=== PATIENT | male | born 1990 | race Caucasian/White ===

== ENCOUNTER 2017-12-03 02:05 | Emergency (ER) | payer OTHER ==
--- NOTE | 2017-12-03 02:41 | PDOC ---
History of Present Illness - General Stated Complaint: INFECTION MOUTH Time Seen by Provider: 12/03/17 02:40 History Source: Patient Exam Limitations: No Limitations - History of Present Illness Initial Comments: 27 y/o male presenting to [facility] ER complaining of swelling and tenderness to left upper jaw. Pt was diagnosed with dental abscess four weeks ago and treated with unknown type and unknown duration of antibiotics. Abscess believed to have formed around a previously cracked tooth in the left maxilla. Delayed definitive treatment while awaiting restart of dental insurance. Swelling initially resolved with antibiotic use but returned two days ago. Symptoms have continued to progress and worsening. Pt elected to seek emergency care for pain management. Denies fevers, chills, diaphoresis, or other systemic symptoms. Past History - Past Medical History Allergies/Adverse Reactions: Allergies Allergy/AdvReac Type Severity Reaction Status Date / Time No Known Allergies Allergy Verified 08/20/12 11:30 Home Medications: Ambulatory Orders Naproxen [Naprosyn] 500 mg PO BID #14 tablet 08/20/12 No Home Medications 0 dose .ROUTE UTDICT 08/20/12 Amox-Tr/K Cl [Augmentin - 875Mg Tablet] 1 tab PO BID #14 tablet 12/03/17 - Suicide/Smoking/Psychosocial Hx Smoking Status: No Smoking History: Never smoked Number of Cigarettes Smoked Daily: 0 Review of Systems - Review of Systems Able to Perform ROS?: Yes Is the patient limited Yi proficient: No Constitutional: No: Chills, Diaphoresis, Fever HEENTM: Yes: Mouth Pain, Dental Problems, Mouth Swelling. No: Throat Pain, Throat Swelling, Difficulty Swallowing Respiratory: No: Shortness of Breath Cardiac (ROS): No: Chest Pain ABD/GI: No: Abdominal cramping Musculoskeletal: No: Muscle Pain Integumentary: Yes: Lumps. No: Erythema, Rash, Sweating Hematologic/Lymphatic: No: Easy Bleeding, Easy Bruising *Physical Exam - Physical Exam Comments: Constitutional: Well-developed, well-nourished male in no acute distress but obvious discomfort. Found sitting upright on edge of bed. Alert and oriented x4. Answered all questions appropriately and completely. Speech was non-labored , non-pressured. HEENT: Asymmetry to face with grossly obvious swelling to upper left cheek. Suspected abscess approx. 5cm x 5cm; subjectively tender to palpation externally and intraorally. Fractured tooth #14; tender to percussion. Mucosa not injected. No swelling in posterior oropharynx. Normocephalic. No obvious external signs of trauma. Hearing grossly normal. No nasal discharge. Neck is supple, trachea is midline. Cardiovascular: Regular rate and regular rhythm. No murmur, rubs, clicks, or gallops. Peripheral pulses: Radial pulses full. Respiratory: Equal chest rise and fall. Clear to auscultation bilaterally. No stridor, no wheezing, no rhonchi. Neuro: Alert and oriented. Moving all four extremities spontaneously. Psych: Affect: appropriate. Mood: normal. Skin: Warm, dry, and intact. Medical Decision Making - Medical Decision Making *Reviewed nursing notes and prior visit documentation. 27 y/o with likely maxillary abscess, symptoms acutely worsening two days ago. S /p PO unknown antibiotic therapy. Afebrile. Vitals unremarkable for tachycardia or hypotension. No systemic signs or symptoms. Low suspicion for sepsis or bacteremia. Will obtain CBC, CMP, PT, PTT, and blood cultures. Ordered toradol and Unasyn. Will prepare to transfer pt to facility with OMFS. Pt states he does not want to be transferred via ambulance. Requested to be discharged so that he could drive himself to [facility]. Stated he did not want labs drawn because they would be redrawn at the other ER. Discussed risks of not being transported by ambulance. Pt verbally expressed understanding and again asked to be discharged so that he could go to [facility] POV. Ordered single dose of Naproxen and amoxicillin for temporarily relief. Also prescribed seven day course of amoxicillin, but encouraged pt to not fill prescription without first being evaluated at [facility]. Pt expressed verbal understanding. *DC/Admit/Observation/Transfer Diagnosis at time of Disposition: Abscess of maxilla - Discharge Dispostion Disposition: HOME Condition at time of disposition: Fair Decision to Admit order: No - Prescriptions Prescriptions: Amox-Tr/K Cl [Augmentin - 875Mg Tablet] 1 tab PO BID #14 tablet - Referrals - Patient Instructions Additional Instructions: GO DIRECTLY TO [facility] TONIGHT! Their address is [address] [place] [address]. We have given you a dose of Naproxen (500mg) and a single dose of Amoxicillin ( 500mg). This is only for temporary relief while you are driven to [facility]. The abscess could get worse or the infection could spread to other parts of your head or body. - Post Discharge Activity
[2017-12-03 02:45] VITALS: BP 142/98; PULSE 76; TEMP 98.4; BMI 30.1
[2017-12-03] MEDS ORDERED: KETOROLAC TROMETHAMINE 15 MG/ML VIAL IVPUSH ONE (02:55)
[2017-12-03] MEDS ORDERED: AMPICILLIN NA/SULBACTAM NA 3 GM in SODIUM CHLORIDE 100 ML IVPB ONE (02:56)
--- NOTE | 2017-12-03 02:59 | PDOC ---
Attending Attestation - Resident Resident Name: Sung Maya - ED Attending Attestation I have performed the following: I have examined & evaluated the patient, The case was reviewed & discussed with the resident, I agree w/resident's findings & plan, Exceptions are as noted - Medical Decision Making 12/03/17 03:15 A portion of this note was written by my scribe, under my supervision. Vital Signs Temp Pulse Resp BP Pulse Ox 98.4 F 76 18 142/98 100 12/03/17 02:43 12/03/17 02:43 12/03/17 02:43 12/03/17 02:43 12/03/17 02:43 This is a healthy 27 year old male with no past medical history presents with R maxillary abscess x 1 month. Approx 1 month ago, pt noted an abscess that was treated with oral antibiotics. The abscess improved. The patient was instructed to go to [facility] for follow up but the patient did not. Noted this past week that it was gradually worsening but no fevers or chills. Because the pain was worsening patient came into the ER. The patient has a large abscess likely secondary to tooth decay. However, this appears to have an acute on chronic component. Initially, the plan was to obtain blood work, blood cultures and to initiate on IV unasyn and to transfer patient to [facility] for OMFS. However, after finding out that the patient would need to be transferred, the patient absolutely did not want to stay here and wants to go directly to [facility]. He has his friend who will pick him up. Though we advised that we will initiate the workup here, the patient does have these symptoms for 1 month. I feel that given its chronicity of symptoms and given patient has capacity and AAOx3, though not certainly optimal, I feel that the patient can be discharged to go directly to [facility]. Will discharge him with augmentin and naproxen. Patient has been instructed to go directly to [facility] for an OMFS evaluation. The patient reports that he will. <Rich Yates - Last Filed: 12/03/17 03:15> - HPI HPI: 12/03/17 03:30 Patient is a 27 year old male with no significant past medical history who presents to the ED with complaints of right sided mouth abscess that developed x1 month ago. Patient reports right sided oral abscess developed x1 month ago that he states has been treated with oral antibiotics with slight improvement. He reports he was instructed to go to [facility] surgery for a follow up but did not go. Patient reports abscess becoming gradually worse last week with increased pain, prompting him to come into the ED for further evaluation. Denies chest pain, sob. Denies nausea, vomiting. Denies fevers,chills. Denies contact with sick individuals, out of state travelling. Denies contact with sick individuals, out of state travelling. Denies any other symptoms. Allergies: None Social history: No smoking. No alcohol. No illicit drugs. Surgical history: None PMD: None - Physicial Exam PE: 12/03/17 03:30 GENERAL: Awake, alert, and fully oriented, in no acute distress HEAD: No signs of trauma EYES: PERRLA, EOMI, sclera anicteric, conjunctiva clear ENT: +5 by 5 cm abscess of the maxilla. +Slight tooth decay of right upper of tooth 14. Auricles normal inspection, hearing grossly normal, nares patent, Moist mucosa NECK: Normal ROM, supple, no lymphadenopathy, JVD, or masses LUNGS: Breath sounds equal, clear to auscultation bilaterally. No wheezes, and no crackles HEART: Regular rate and rhythm, normal S1 and S2, no murmurs, rubs or gallops ABDOMEN: Soft, nontender, normoactive bowel sounds. No guarding, no rebound. No masses EXTREMITIES: Normal range of motion, no edema. No clubbing or cyanosis. No cords, erythema, or tenderness NEUROLOGICAL: Cranial nerves II through XII grossly intact. Normal speech, normal gait SKIN: Warm, Dry, normal turgor, no rashes or lesions noted. <Mane Carter - Last Filed: 12/03/17 03:30>
[2017-12-03] MEDS ORDERED: NAPROXEN 500 MG TABLET (FP) PO ONE (03:21)
[2017-12-03] MEDS ORDERED: AMOXICILLIN 500 MG CAPSULE (FP) PO ONE (03:22)
[2017-12-03] MEDS ORDERED: AMOXICILLIN 500 MG CAPSULE (FP) ONE (03:29)
[2017-12-03] MEDS ORDERED: NAPROXEN 500 MG TABLET (FP) ONE (03:30)
== END 2017-12-03 03:35 | disposition home or self-care (01) ==
LOC: JER 02:05
DX: M27.2 Inflammatory conditions of jaws (principal)
CPT/HCPCS: 99281-25